=== PATIENT | female | born 1985 | race Two or more races ===

== ENCOUNTER 2016-05-31 09:35 | Day surgery (SDC) | payer OTHER ==
[2016-05-26 12:19] VITALS: BMI 29.0
[2016-05-31] MEDS ORDERED: MIDAZOLAM HCL 2 MG/2 ML SINGLE DOSE VIAL ONE (11:33)
[2016-05-31] MEDS ORDERED: PROPOFOL 20 ML ONE ×2 (11:33)
[2016-05-31] MEDS ORDERED: ROCURONIUM BROMIDE 50 MG/5 ML VIAL ONE (11:33)
[2016-05-31] MEDS ORDERED: SUCCINYLCHOLINE CHLORIDE 200 MG/10 ML VIAL ONE (11:33)
[2016-05-31] MEDS ORDERED: LIDOCAINE HCL/PF 2% SDV 5ML VIAL ONE (12:05)
[2016-05-31] MEDS ORDERED: ceFAZolin SODIUM 1 GM VIAL ONE (12:11)
[2016-05-31] MEDS ORDERED: ceFAZolin SODIUM 1 GM VIAL IVPB ONE (12:19)
[2016-05-31] MEDS ORDERED: ALBUTEROL SO4 6.7 GM HFA INHALER IH ONE (12:32)
[2016-05-31] MEDS ORDERED: KETOROLAC TROMETHAMINE 30 MG/1 ML VIAL ONE (12:32)
[2016-05-31] MEDS ORDERED: ePHEDrine SULFATE 50 MG/1 ML AMPULE ONE (12:41)
[2016-05-31] MEDS ORDERED: NEOSTIGMINE METHYLSULFATE 0.5 MG/ML - 10 ML MDV ONE ×2 (13:20→13:23)
[2016-05-31] MEDS ORDERED: GLYCOPYRROLATE 0.2 MG/1 ML VIAL ONE (13:21)
--- NOTE | 2016-05-31 15:50 | HP ---
History & Physical Update - History History: No Change - Physical Physical: No Change - Assessment Assessment: No Change - Plan Plan: No Change
[2016-05-31] MEDS ORDERED: oxyCODONE HCL 5 MG TABLET PO PRN ×2 (15:51)
[2016-05-31] MEDS ORDERED: ONDANSETRON 4 MG/2 ML VIAL IVPUSH PRN (15:51)
[2016-05-31] MEDS ORDERED: IBUPROFEN 800 MG/8 ML IJ IVPB PRN (15:52)
--- NOTE | 2016-05-31 15:55 | OP ---
Operative Note - Note: Operative Date: 05/31/16 Pre-Operative Diagnosis: left ovarian cyst. sterilization Operation: Robotic laparoscopic Left ovarian cystecectomy. laparosopic bilateral salpingectomy Post-Operative Diagnosis: Same as Pre-op Surgeon: Kaylyn Sandoval Appraiser Timber: Otilia Reynolds Anesthesia: General Estimated Blood Loss (mls): 30 Operative Report Dictated: Yes
[2016-05-31] MEDS ORDERED: LACTATED RINGERS SOLUTION 1,000 ML IV SCH ×2 (16:00)
[2016-05-31 16:31] VITALS: TEMP 98.3
[2016-05-31] MEDS ORDERED: ONDANSETRON 4 MG/2 ML VIAL IVPB PRN (17:00)
[2016-05-31] MEDS ORDERED: SIMETHICONE 80 MG TAB.CHEW (FP) PO PRN (17:00)
[2016-05-31 17:53] VITALS: BP 115/67; PULSE 98
--- NOTE | 2016-06-01 18:55 | OP ---
DATE OF OPERATION: 05/31/2016 PREOPERATIVE DIAGNOSIS: Left ovarian cyst and voluntary sterilization. POSTOPERATIVE DIAGNOSIS: Left ovarian cyst and voluntary sterilization. OPERATION: Robotic laparoscopic left ovarian cystectomy and bilateral salpingectomy. SURGEON: Quyen Sandoval MD QUALITY ASSURANCE QA LAB ANALYST: Otilia Reynolds DO ANESTHESIA: General. ESTIMATED BLOOD LOSS: 30 mL. PROCEDURE: Patient was taken to the operating room and placed in the dorsal lithotomy position. Patient was prepped and draped in the usual sterile fashion. A timeout was performed in accordance with hospital regulation. Medrano catheter was inserted into the bladder. Attention was then drawn to the umbilicus where an 8-mm umbilical incision was made. The Veress needle was inserted into the cavity. Approximately 3-4 L of CO2 was insufflated into the cavity. Veress needle was then removed and an 8-mm trocar was then inserted. Laparoscope and camera were attached. Two trocars were placed on the left, one lower and one in the upper abdomen. The 5-mm incision was made in the upper abdomen and the AirSeal cannula was inserted. An 8-mm trocar in the lower part of the abdomen and the trocar was inserted under direct visualization. Two incisions were made on the right side parallel to each other and 8-mm trocars were then inserted. Da Kwaku robot was then side docked to the patient's bedside and trocars were then inserted onto the da Kwaku robot. Keisha and fenestrated bipolar and Endoshears were inserted under direct visualization. Attention was then drawn to the console where control of the console was done. Tubes were bilaterally grasped. The fenestrated bipolar was then used to coagulate the tubes bilaterally away from the uterus. Right ovary was noted to be normal. Left ovary was noted to have a 4-cm cyst. Cautery using the Endoshears was done and cyst wall was seen. Keisha and bipolar fenestrated were then used to remove the cyst wall from the ovary. Specimen was then removed. Hemostasis was achieved using cauterization. After hemostasis had been achieved, all instruments were then removed. CO2 was removed from the abdomen. The incisions were then closed using 4-0 Biosyn sutures in a subcuticular fashion. The wound was washed and dressed. Patient tolerated the procedure well. Estimated blood loss was 30 mL. QUYEN SANDOVAL M.D. [id number]
--- NOTE | 2016-06-03 10:33 | PATH ---
Surgical Pathology Report Patient Name: SILVIANO DENNEY [facility]. Rec. #: [id number] /Age/Gender: 1985 (Age: 30) / F Account: [id number] Location: [facility] SURGICAL Taken: 05/31/2016 Received: 06/01/2016 Reported: 06/03/2016 Physicians: Kaylyn Sandoval M.D. Specimen(s) Received A: RIGHT FALLOPIAN TUBE B: LEFT FALLOPIAN TUBE C: LEFT OVARIAN CYST WALL Clinical History Ovarian cyst Final Diagnosis A. FALLOPIAN TUBE, RIGHT, SALPINGECTOMY: FALLOPIAN TUBE WITH SMALL BENIGN FIMBRIAL ADENOFIBROMA WITH CALCIFICATIONS, PIGMENTED HISTIOCYTES AND MULTINUCLEATED GIANT CELL REACTION. B. FALLOPIAN TUBE, LEFT, SALPINGECTOMY: PORTION OF FALLOPIAN TUBE WITH FOCAL FIBRINOHEMORRHAGIC ADHESIONS. C. OVARY, LEFT, CYSTECTOMY: BENIGN HEMORRHAGIC CYST. Electronically Signed Jacobo Lemus M.D. Gross Description A. Received in formalin, labeled "right fallopian tube" are 2 portions of fallopian tube measuring 4.2 and 3.8 cm. The shorter portion of fallopian tube is fimbriated. The outer surfaces are ronquillo-barry. Sectioning reveals pinpoint lumens. Physical Therapy Supervisor sections are submitted in 2 cassettes as follows: 1-fimbria; 2-cross sections of fallopian tube. B. Received in formalin, labeled "left fallopian tube" is a 3.5 cm in length portion of fallopian tube. No fimbria are present. The outer surface is ronquillo-barry. Sectioning reveals a pinpoint lumen. Physical Therapy Supervisor sections are submitted in one cassette. C. Received in formalin, labeled "left ovarian cyst wall" is a 2.0 x 1.4 x 0.2 cm aggregate of ronquillo brown soft tissue fragments, possibly consistent with portions of a disrupted cyst. The specimen is entirely submitted in one cassette. 06/01/201606/01/2016
== END 2016-05-31 17:54 | disposition home or self-care (01) ==
LOC: JASU-SURG 09:35
PROVIDERS: ATTEND Obstetrics & Gynecology
PROC: 0UT74ZZ Resection of Bilateral Fallopian Tubes, Percutaneous Endoscopic Approach (ICD-10-PCS; principal; 2016-05-31 12:00)
PROC: 0UB14ZZ Excision of Left Ovary, Percutaneous Endoscopic Approach (ICD-10-PCS; 2016-05-31 12:00)
DX: Z30.2 Encounter for sterilization (principal); N83.202 Unspecified ovarian cyst, left side
CPT/HCPCS: 84703; 88302-TC; 88305-TC; 94760

== ENCOUNTER 2018-10-19 19:56 | Emergency (ER) | payer OTHER ==
[2018-10-19] MEDS ORDERED: ALBUTEROL SO4 2.5/IPRATROPIUM 0.5 INH SOL 3 ML VIAL.NEB. NEB ONE ×3 (20:00→20:54)
[2018-10-19] MEDS ORDERED: DEXAMETHASONE LIQUID 0.5 MG/5 ML 240 ML BULK BOTTLE PO ONE (20:00)
--- NOTE | 2018-10-19 20:04 | PDOC ---
Rapid Medical Evaluation Time Seen by Provider: 10/19/18 20:00 Medical Evaluation: Allergies Allergy/AdvReac Type Severity Reaction Status Date / Time No Known Allergies Allergy Verified 05/31/16 11:03 10/19/18 20:02 The patient is a 32 y/o F with PMH of asthma who presents for an asthma exacerbation. She is out of her nebulizer treatments at home. Last Menstrual in 07/04. Hx of tubal ligation Exam: Lungs with course lung sounds, fair aeration to the bases O2 sat 99% Orders: duoneb, steroids Pt to proceed to the ER for further evaluation Discharge Disposition - Diagnosis Asthma - Referrals - Patient Instructions - Post Discharge Activity
[2018-10-19 20:09] VITALS: BP 120/87; PULSE 99; TEMP 99; BMI 31.2
[2018-10-19] MEDS ORDERED: DEXAMETHASONE SOD PHOSPHATE 10 MG/1 ML VIAL ONE (20:12)
--- NOTE | 2018-10-19 20:53 | PDOC ---
History of Present Illness - General Chief Complaint: Asthma Stated Complaint: ASTHMA Time Seen by Provider: 10/19/18 20:00 - History of Present Illness Initial Comments: 10/19/18 20:52 32-year-old female with a past medical history significant for asthma presents for evaluation of asthma exacerbation over the last week. No fever or systemic symptoms. Past History - Past Medical History Allergies/Adverse Reactions: Allergies Allergy/AdvReac Type Severity Reaction Status Date / Time No Known Allergies Allergy Verified 10/19/18 20:06 Home Medications: Ambulatory Orders Albuterol Sulfate [Proventil HFA Inhaler -] 1 - 2 inh PO TID PRN 05/26/16 Ibuprofen [Motrin -] 600 mg PO QID PRN #28 tablet 05/31/16 Albuterol Sulfate Inhaler - [Ventolin HFA Inhaler -] 1 - 2 inh PO Q4H #1 inhaler 10/19/18 Anemia: No Asthma: Yes Cancer: No Cardiac Disorders: No CVA: No COPD: No CHF: No Dementia: No Diabetes: No GI Disorders: No Disorders: No HTN: No Hypercholesterolemia: No Liver Disease: No Seizures: No Thyroid Disease: No - Surgical History Abdominal Surgery: Yes (tubal ligation) - Suicide/Smoking/Psychosocial Hx Smoking History: Never smoked Have you smoked in the past 12 months: No Information on smoking cessation initiated: No Hx Alcohol Use: No Drug/Substance Use Hx: No Hx Substance Use Treatment: No Review of Systems - Review of Systems Constitutional: No: Fever Respiratory: Yes: Cough, Wheezing *Physical Exam - Vital Signs Last Vital Signs Temp Pulse Resp BP Pulse Ox 99.0 F 99 H 18 120/87 100 10/19/18 20:04 10/19/18 20:04 10/19/18 20:04 10/19/18 20:04 10/19/18 20:04 - Physical Exam Comments: 10/19/18 20:53 HEAD: NC/AT EYES: Conjuntiva clear Ears: Canals and TM's normal NOSE: No d/c THROAT: Moist mucous membrances, oral pharanx clear, uvula midline NECK: Supple without adenopathy CARDIAC: S1 S2 LUNGS: Diffuse expiratory wheezing ABDOMEN: Soft NT ND MS: Full ROM in all joints without edema NEUROLOGIC: No gross sensory or motor deficits, NVID SKIN: Normal color and temperature no lesions or rashes ED Treatment Course - Medications Given in the ED: ED Medications Discontinued Medications Generic Name Dose Route Start Last Admin Trade Name Alfred PRN Reason Stop Dose Admin Albuterol/Ipratropium 1 amp 10/19/18 20:00 10/19/18 20:21 Duoneb - NEB 10/19/18 20:01 1 amp ONCE ONE Administration Dexamethasone 10 mg 10/19/18 20:00 10/19/18 20:21 Decadron Liquid - PO 10/19/18 20:01 10 mg ONCE ONE Administration Medical Decision Making - Medical Decision Making 10/19/18 22:23 cleared after 4th duo neb, albuterol refilled f/u w PCP *DC/Admit/Observation/Transfer Diagnosis at time of Disposition: Asthma - Discharge Dispostion Disposition: HOME Condition at time of disposition: Improved Decision to Admit order: No - Referrals Referrals: Jordan Rodriguez MD [Primary Care Provider] - - Patient Instructions Printed Discharge Instructions: Asthma -- Adult Additional Instructions: Return the emergency room for worsening symptoms. Follow-up with your primary care physician in 1-2 days without fail for further evaluation and treatment options. Your medication was refilled her pharmacy. - Post Discharge Activity
[2018-10-19] MEDS: ALBUTEROL SO4 2.5/IPRATROPIUM 0.5 INH SOL 3 ML VIAL.NEB. NEB SCH ×4 (20:56→21:46)
== END 2018-10-19 22:28 | disposition home or self-care (01) ==
LOC: JER 19:56 → JERFT 19:56
PROC: 3E0F7GC Introduction of Other Therapeutic Substance into Respiratory Tract, Via Natural or Artificial Opening (ICD-10-PCS; principal; 2018-10-19)
DX: J45.909 Unspecified asthma, uncomplicated (principal)
CPT/HCPCS: 99281-25